=== PATIENT | female | born 1945 | race Caucasian/White ===

== ENCOUNTER 2016-09-04 18:55 | Inpatient (IN) | payer MEDICARE, OTHER ==
[~2016-09-04] VITALS: Ht 157.5 cm; Wt 63.5 kg
[2016-09-04] MEDS ORDERED: FOLI0.8T2 PO (19:24)
[2016-09-04] MEDS ORDERED: CHOL100044 PO (19:24)
[2016-09-04] MEDS ORDERED: BLOO-668 IN (19:24)
[2016-09-04] MEDS ORDERED: ESCI10TA PO (19:24)
[2016-09-04] MEDS ORDERED: ATOR40TA PO (19:24)
[2016-09-04] MEDS ORDERED: NITR0.4T6 SL (19:24)
[2016-09-04] MEDS ORDERED: AMLO10TA2 PO (19:24)
[2016-09-04] MEDS ORDERED: QUET25TA PO (19:24)
[2016-09-04] MEDS ORDERED: FAMO20TA8 PO (19:24)
[2016-09-04] MEDS ORDERED: INSU100V27 SQ (19:24)
[2016-09-04] MEDS ORDERED: LORA1TAB PO (19:24)
[2016-09-04] MEDS ORDERED: LEVO25TA9 PO (19:24)
[2016-09-04] MEDS ORDERED: ACET-868 PO (19:24)
[2016-09-04] MEDS ORDERED: TEMA15CA PO (19:24)
[2016-09-04] MEDS ORDERED: LISI-603 PO (19:24)
[2016-09-04] MEDS ORDERED: ISOS30TA6 PO (19:24)
[2016-09-04] MEDS ORDERED: ASPI325T2 PO (19:24)
[2016-09-04] MEDS ORDERED: IV NS 0.9% 500 ML BAG IV ONE (19:30)
[2016-09-04] MEDS ORDERED: HYDROMORPHONE INJ 2 MG/ML DISP.SYRIN IV ONE (19:30)
[2016-09-04 19:34] LABS: BASOPHILS # (AUTO) 0.3 /CMM (0.0-0.2); BASOPHILS % (AUTO) 3.7 % (0.0-2.0); DIFF TOTAL % 100 %; EOSINOPHILS % (AUTO) 0.3 % (0.0-6.0); HEMATOCRIT 43 % (33-45); HEMOGLOBIN 13.6 g/dL (11.5-14.8); LYMPHOCYTES # (AUTO) 3.6 /CMM (0.8-4.8); LYMPHOCYTES % (AUTO) 47.1 % (20.0-44.0); MEAN CORPUSCULAR HEMOGLOBIN 29 PG (26.0-33.0); MEAN CORPUSCULAR HGB CONC 32 g/dl (31.0-36.0); MEAN CORPUSCULAR VOLUME 90 fL (82-100); MONOCYTES # (AUTO) 0.8 /CMM (0.1-1.30); MONOCYTES % (AUTO) 9.8 % (2.0-12.0); NEUTROPHILS % (AUTO) 39.1 % (43.0-81.0); PLATELET COUNT (AUTO) 281 /CMM (150-450); RED BLOOD CELL COUNT(AUTO) 4.75 MIL/uL (4.0-5.2); WHITE BLOOD COUNT (AUTO) 7.7 K/uL (4.3-11.0)
[2016-09-04 19:45] LABS: CALCIUM, SERUM 9.4 mg/dL (8.5-10.1); CREATININE 4.1 mg/dL (0.6-1.3); POTASSIUM 3.8 mmol/L (3.5-5.1)
[2016-09-04 19:47] LABS: INR 0.94 (0.87-1.13); PROTHROMBIN TIME 9.9 SECS (9.5-12.7)
[2016-09-04] MEDS ORDERED: HYDROMORPHONE 1 MG/1 ML DISP.SYRIN ONE (19:57)
[2016-09-04] MEDS ORDERED: IV NS 0.9% 500 ML IV ONE (19:57)
[2016-09-04] MEDS ORDERED: IV SET PRIMARY 1 EA INFUS.SET MC ONE (19:58)
[2016-09-04] MEDS ORDERED: IV NS 0.9% 1,000 ML IV PRN (20:59)
[2016-09-04 21:00] VITALS: BP 172/79
[2016-09-04] MEDS ORDERED: ENOXAPARIN SODIUM 40 MG/0.4 ML DISP.SYRIN SQ SCH (21:00)
[2016-09-04] MEDS ORDERED: VANCOMYCIN 1 GM in IV D5W 250 ML IV ONE (21:00)
[2016-09-04] MEDS ORDERED: MAG HYDROX/AL HYDROX/SIMETH 30 ML UDC PO PRN (21:00)
[2016-09-04] MEDS ORDERED: ACETAMINOPHEN 325 MG TABLET PO PRN (21:00)
[2016-09-04] MEDS ORDERED: MAGNESIUM HYDROXIDE 30 ML UDC PO PRN (21:00)
[2016-09-04] MEDS ORDERED: Z GUARD REMEDY 2 OZ OINT TP PRN (21:00)
[2016-09-04] MEDS ORDERED: DEXTROSE 50%-WATER 50 ML DISP.SYRIN IV PRN (21:30)
[2016-09-04] MEDS ORDERED: ENOXAPARIN SODIUM 40 MG/0.4 ML DISP.SYRIN SQ ONE (21:33)
[2016-09-04] MEDS ORDERED: VANCOMYCIN 1 GM VIAL ONE (21:34)
[2016-09-04] MEDS ORDERED: IV D5W 250 ML IV ONE (21:34)
[2016-09-04] MEDS ORDERED: PIPERACILLIN /TAZOBACTAM 3.375 G VIAL IV ONE (21:35)
[2016-09-04] MEDS ORDERED: IV D5W 100 ML IV ONE (21:35)
[2016-09-04] MEDS ORDERED: HYDROMORPHONE INJ 2 MG/ML DISP.SYRIN ONE (21:37)
[2016-09-04] MEDS ORDERED: IV NS 0.9% 250 ML IV ONE (21:39)
[2016-09-04] MEDS ORDERED: INSULIN REGULAR, HUMAN 100 UNIT/ML 10 ML VIAL ONE (21:39)
[2016-09-04] MEDS ORDERED: IV SET PRIMARY PUMP SET 1 EA INFUS.SET MC ONE (21:39)
[2016-09-04] MEDS ORDERED: SECONDARY IV SET 1 EA INFUS.SET MC ONE (21:39)
[2016-09-04] MEDS: PIPERACILLIN /TAZOBACTAM 3.375 G in IV D5W 100 ML IV SCH (21:57)
[2016-09-04] MEDS: BLOOD SUGAR DIAGNOSTIC 1 EACH STRIP IN SCH (22:03)
[2016-09-04] MEDS: HYDROMORPHONE INJ 2 MG/ML DISP.SYRIN IV PRN (22:19)
[2016-09-04] MEDS: *INSULIN REGULAR(HUMULIN R)HUM 100 UNIT/ML VIAL SQ PRN (22:34)
[2016-09-04] MEDS ORDERED: ZOLPIDEM TARTRATE 5 MG TABLET ONE (22:43)
[2016-09-04] MEDS: ZOLPIDEM TARTRATE 5 MG TABLET PO PRN (23:04)
[2016-09-05] VITALS: BP 109/49
[2016-09-05 00:15] VITALS: BP 109/49
[2016-09-05] MEDS ORDERED: LORAZEPAM 1 MG TABLET PO PRN (02:30)
[2016-09-05] MEDS ORDERED: NITROGLYCERIN 0.4 MG/TAB BOTTLE SL PRN (02:30)
[2016-09-05] MEDS ORDERED: PIPERACILLIN /TAZOBACTAM 3.375 G VIAL IV ONE (04:15)
[2016-09-05] MEDS ORDERED: IV D5W 100 ML IV ONE (04:15)
[2016-09-05] MEDS: PIPERACILLIN /TAZOBACTAM 3.375 G in IV D5W 100 ML IV SCH (05:01)
[2016-09-05] MEDS ORDERED: HYDROMORPHONE INJ 2 MG/ML DISP.SYRIN ONE (05:11)
[2016-09-05] MEDS: HYDROMORPHONE INJ 2 MG/ML DISP.SYRIN IV PRN ×2 (05:15→09:43)
[2016-09-05] MEDS: BLOOD SUGAR DIAGNOSTIC 1 EACH STRIP IN SCH ×4 (05:34→21:34)
[2016-09-05 07:44] LABS: ALBUMIN 2.9 g/dL (3.4-5.0); BILIRUBIN,TOTAL 0.4 mg/dL (0.2-1.0); CALCIUM, SERUM 8.3 mg/dL (8.5-10.1); CREATININE 4.8 mg/dL (0.6-1.3); PHOSPHORUS 4.1 mg/dL (2.5-4.9); POTASSIUM 3.6 mmol/L (3.5-5.1); TOTAL PROTEIN, SERUM 6.8 g/dL (6.4-8.2)
[2016-09-05 08:00] VITALS: BP_SYST 121; BP_DIAS 50; BP_DIAS 70
[2016-09-05 08:05] LABS: BASOPHILS % (AUTO) 0.4 % (0.0-2.0); DIFF TOTAL % 100 %; EOSINOPHILS # (AUTO) 0.1 /CMM (0.0-0.7); EOSINOPHILS % (AUTO) 1.6 % (0.0-6.0); HEMATOCRIT 37 % (33-45); HEMOGLOBIN 11.8 g/dL (11.5-14.8); LYMPHOCYTES # (AUTO) 4.9 /CMM (0.8-4.8); LYMPHOCYTES % (AUTO) 57.8 % (20.0-44.0); MEAN CORPUSCULAR HEMOGLOBIN 29 PG (26.0-33.0); MEAN CORPUSCULAR HGB CONC 32 g/dl (31.0-36.0); MEAN CORPUSCULAR VOLUME 90 fL (82-100); MONOCYTES # (AUTO) 0.7 /CMM (0.1-1.30); MONOCYTES % (AUTO) 8.3 % (2.0-12.0); NEUTROPHILS # (AUTO) 2.7 /CMM (1.8-8.9); NEUTROPHILS % (AUTO) 31.9 % (43.0-81.0); RED BLOOD CELL COUNT(AUTO) 4.04 MIL/uL (4.0-5.2); WHITE BLOOD COUNT (AUTO) 8.5 K/uL (4.3-11.0)
[2016-09-05] MEDS ORDERED: FEE PK DOSING 1 MIN EA MC ONE (08:52)
[2016-09-05] MEDS: PANTOPRAZOLE 40 MG VIAL IV SCH (09:03)
[2016-09-05] MEDS: CHOLECALCIFEROL 1,000 UNIT TABLET (VIT D3) PO SCH (09:03)
[2016-09-05] MEDS: ESCITALOPRAM OXALATE (10 MG) 10 MG TABLET PO SCH (09:03)
[2016-09-05] MEDS: ASPIRIN 325 MG TABLET PO SCH (09:04)
[2016-09-05] MEDS: LEVOTHYROXINE SODIUM 25 MCG TABLET PO SCH (09:04)
[2016-09-05] MEDS: QUETIAPINE FUMARATE 25 MG TABLET PO SCH ×2 (09:04→21:29)
[2016-09-05] MEDS: AMLODIPINE BESYLATE 10 MG TABLET PO SCH (09:04)
[2016-09-05] MEDS: ISOSORBIDE MONONITRATE (30MG) 30 MG TAB.SR.24H PO SCH (09:05)
[2016-09-05] MEDS: LISINOPRIL (20MG) 20 MG TABLET PO SCH (09:05)
[2016-09-05] MEDS: VIT B CMPLX 3/FA/VIT C/BIOTIN 1 TAB TABLET PO SCH (09:16)
[2016-09-05] MEDS: ONDANSETRON HCL/PF 4 MG/2 ML VIAL IVP PRN (09:16)
[2016-09-05 10:30] VITALS: BP 153/84
[2016-09-05] MEDS: PIPERACILLIN /TAZOBACTAM 2.25 G in IV D5W 50 ML IV SCH ×2 (12:30→20:38)
[2016-09-05] MEDS: INSULIN REGULAR, HUMAN 100 UNIT/ML 3 ML VIAL SQ PRN ×2 (12:51→18:44)
[2016-09-05 13:25] LABS: LYMPHOCYTES % (MANUAL) 58 % (16-48)
[2016-09-05 13:26] LABS: ANISOCYTOSIS 1+
[2016-09-05 13:33] LABS: PLATELET ESTIMATE ADEQU
[2016-09-05 13:37] LABS: PLATELET COUNT (AUTO) 197 /CMM (150-450)
[2016-09-05 16:00] VITALS: BP 148/75
[2016-09-05] MEDS: POVIDONE-IODINE OINT 28.4 GM TUBE TP SCH (18:41)
[2016-09-05 20:00] VITALS: BP 143/63
[2016-09-05] MEDS: ATORVASTATIN 40 MG TABLET PO SCH (21:29)
[2016-09-05] MEDS: HYDROCODONE/APAP 5/325MG 1 EACH TABLET PO PRN (21:30)
[2016-09-06] MEDS: HYDROMORPHONE INJ 2 MG/ML DISP.SYRIN IV PRN ×2 (02:21→16:43)
[2016-09-06] MEDS: PIPERACILLIN /TAZOBACTAM 2.25 G in IV D5W 50 ML IV SCH ×3 (05:01→21:44)
[2016-09-06] MEDS: BLOOD SUGAR DIAGNOSTIC 1 EACH STRIP IN SCH ×4 (05:28→21:44)
[2016-09-06] MEDS ORDERED: VANCOMYCIN 500 MG in IV D5W 100 ML IV PRN (06:00)
[2016-09-06] MEDS: HYDROCODONE/APAP 5/325MG 1 EACH TABLET PO PRN (06:06)
[2016-09-06 07:27] LABS: CALCIUM, SERUM 8.9 mg/dL (8.5-10.1); CREATININE 6.5 mg/dL (0.6-1.3); POTASSIUM 3.6 mmol/L (3.5-5.1)
[2016-09-06 08:00] VITALS: BP 108/50
[2016-09-06] MEDS: ESCITALOPRAM OXALATE (10 MG) 10 MG TABLET PO SCH (08:14)
[2016-09-06] MEDS: ASPIRIN 325 MG TABLET PO SCH (08:14)
[2016-09-06] MEDS: QUETIAPINE FUMARATE 25 MG TABLET PO SCH ×2 (08:14→21:44)
[2016-09-06] MEDS: PANTOPRAZOLE 40 MG VIAL IV SCH (08:14)
[2016-09-06] MEDS: VIT B CMPLX 3/FA/VIT C/BIOTIN 1 TAB TABLET PO SCH (08:14)
[2016-09-06] MEDS: AMLODIPINE BESYLATE 10 MG TABLET PO SCH (08:14)
[2016-09-06] MEDS: CHOLECALCIFEROL 1,000 UNIT TABLET (VIT D3) PO SCH (08:14)
[2016-09-06] MEDS: ISOSORBIDE MONONITRATE (30MG) 30 MG TAB.SR.24H PO SCH (08:14)
[2016-09-06] MEDS: LEVOTHYROXINE SODIUM 25 MCG TABLET PO SCH (08:14)
[2016-09-06] MEDS: HEPARIN SODIUM, PORCINE 5000 UNITS/1 ML VIAL SQ SCH ×2 (08:15→21:43)
[2016-09-06] MEDS: LISINOPRIL (20MG) 20 MG TABLET PO SCH (08:15)
[2016-09-06] MEDS: INSULIN REGULAR, HUMAN 100 UNIT/ML 3 ML VIAL SQ PRN (12:25)
[2016-09-06 16:00] VITALS: BP 154/92
[2016-09-06] MEDS: POVIDONE-IODINE OINT 28.4 GM TUBE TP SCH (16:42)
[2016-09-06 20:00] VITALS: BP 109/60
[2016-09-06 20:07] VITALS: BP 109/60
[2016-09-06] MEDS: *INSULIN REGULAR(HUMULIN R)HUM 100 UNIT/ML VIAL SQ PRN (21:42)
[2016-09-06] MEDS: ATORVASTATIN 40 MG TABLET PO SCH (21:44)
[2016-09-06] MEDS ORDERED: VANCOMYCIN 500 MG in IV D5W 100 ML IV SCH (22:00)
[2016-09-06] MEDS: ZOLPIDEM TARTRATE 5 MG TABLET PO PRN (23:25)
[2016-09-07] MEDS: PIPERACILLIN /TAZOBACTAM 2.25 G in IV D5W 50 ML IV SCH ×3 (05:58→20:21)
[2016-09-07] MEDS: BLOOD SUGAR DIAGNOSTIC 1 EACH STRIP IN SCH ×4 (06:49→21:20)
[2016-09-07 08:00] VITALS: BP 104/53
[2016-09-07 08:06] LABS: CALCIUM, SERUM 8.7 mg/dL (8.5-10.1); CREATININE 5.5 mg/dL (0.6-1.3)
[2016-09-07] MEDS: PANTOPRAZOLE 40 MG VIAL IV SCH (08:12)
[2016-09-07] MEDS: VIT B CMPLX 3/FA/VIT C/BIOTIN 1 TAB TABLET PO SCH (08:12)
[2016-09-07] MEDS: ESCITALOPRAM OXALATE (10 MG) 10 MG TABLET PO SCH (08:12)
[2016-09-07] MEDS: CHOLECALCIFEROL 1,000 UNIT TABLET (VIT D3) PO SCH (08:12)
[2016-09-07] MEDS: LEVOTHYROXINE SODIUM 25 MCG TABLET PO SCH (08:12)
[2016-09-07] MEDS: ASPIRIN 325 MG TABLET PO SCH (08:12)
[2016-09-07] MEDS: QUETIAPINE FUMARATE 25 MG TABLET PO SCH ×2 (08:12→20:24)
[2016-09-07] MEDS: AMLODIPINE BESYLATE 10 MG TABLET PO SCH (08:13)
[2016-09-07] MEDS: LISINOPRIL (20MG) 20 MG TABLET PO SCH (08:13)
[2016-09-07] MEDS: ISOSORBIDE MONONITRATE (30MG) 30 MG TAB.SR.24H PO SCH (08:14)
[2016-09-07] MEDS: HEPARIN SODIUM, PORCINE 5000 UNITS/1 ML VIAL SQ SCH ×2 (08:17→21:24)
[2016-09-07] MEDS: INSULIN REGULAR, HUMAN 100 UNIT/ML 3 ML VIAL SQ PRN (11:59)
[2016-09-07 16:00] VITALS: BP 133/60
[2016-09-07] MEDS: POVIDONE-IODINE OINT 28.4 GM TUBE TP SCH (17:24)
[2016-09-07] MEDS: LACTOBACILLUS RHAMNOSUS GG 1 EACH CAP.SPRINK PO SCH (17:25)
[2016-09-07 19:00] VITALS: BP 126/60
[2016-09-07] MEDS ORDERED: methylPREDNISolone (4MG) 4 MG TABLET PO SCH (20:00)
[2016-09-07] MEDS: ATORVASTATIN 40 MG TABLET PO SCH (21:20)
[2016-09-07] MEDS: *INSULIN REGULAR(HUMULIN R)HUM 100 UNIT/ML VIAL SQ PRN (22:06)
[2016-09-08] MEDS: PIPERACILLIN /TAZOBACTAM 2.25 G in IV D5W 50 ML IV SCH ×3 (05:53→21:26)
[2016-09-08] MEDS ORDERED: methylPREDNISolone (4MG) 4 MG TABLET PO SCH (06:00)
[2016-09-08] MEDS ORDERED: diphenhydrAMINE HCL 50 MG CAPSULE PO SCH (06:00)
[2016-09-08] MEDS: INSULIN REGULAR, HUMAN 100 UNIT/ML 3 ML VIAL SQ PRN ×3 (07:04→18:13)
[2016-09-08] MEDS: BLOOD SUGAR DIAGNOSTIC 1 EACH STRIP IN SCH ×4 (07:04→22:43)
[2016-09-08 07:32] LABS: CALCIUM, SERUM 8.5 mg/dL (8.5-10.1)
[2016-09-08] MEDS: ASPIRIN 325 MG TABLET PO SCH (08:58)
[2016-09-08] MEDS: PANTOPRAZOLE 40 MG VIAL IV SCH (08:58)
[2016-09-08] MEDS: LEVOTHYROXINE SODIUM 25 MCG TABLET PO SCH (08:58)
[2016-09-08] MEDS: ISOSORBIDE MONONITRATE (30MG) 30 MG TAB.SR.24H PO SCH (08:59)
[2016-09-08] MEDS: CHOLECALCIFEROL 1,000 UNIT TABLET (VIT D3) PO SCH (08:59)
[2016-09-08] MEDS: LACTOBACILLUS RHAMNOSUS GG 1 EACH CAP.SPRINK PO SCH ×2 (08:59→18:09)
[2016-09-08] MEDS: ESCITALOPRAM OXALATE (10 MG) 10 MG TABLET PO SCH (08:59)
[2016-09-08] MEDS: QUETIAPINE FUMARATE 25 MG TABLET PO SCH ×2 (09:00→21:26)
[2016-09-08] MEDS: LISINOPRIL (20MG) 20 MG TABLET PO SCH (09:00)
[2016-09-08] MEDS: AMLODIPINE BESYLATE 10 MG TABLET PO SCH (09:00)
[2016-09-08] MEDS: VIT B CMPLX 3/FA/VIT C/BIOTIN 1 TAB TABLET PO SCH (09:00)
[2016-09-08] MEDS: HEPARIN SODIUM, PORCINE 5000 UNITS/1 ML VIAL SQ SCH ×2 (09:06→21:32)
[2016-09-08] MEDS ORDERED: CT SWABBABLE VALVE TRANS SET 1 EA INFUS.SET MC ONE (09:41)
[2016-09-08] MEDS ORDERED: IV NS 0.9% 250 ML IV ONE (09:41)
[2016-09-08] MEDS ORDERED: IOHEXOL-350 100 ML VIAL IV ONE (09:41)
[2016-09-08] MEDS: POVIDONE-IODINE OINT 28.4 GM TUBE TP SCH (18:10)
[2016-09-08] MEDS: HYDROCODONE/APAP 5/325MG 1 EACH TABLET PO PRN (18:24)
[2016-09-08 20:00] VITALS: BP 150/69
[2016-09-08] MEDS ORDERED: IV SET PRIMARY PUMP SET 1 EA INFUS.SET MC ONE (21:13)
[2016-09-08] MEDS: ATORVASTATIN 40 MG TABLET PO SCH (21:27)
[2016-09-09] MEDS: PIPERACILLIN /TAZOBACTAM 2.25 G in IV D5W 50 ML IV SCH ×3 (04:59→20:58)
[2016-09-09 06:05] LABS: CALCIUM, SERUM 8.8 mg/dL (8.5-10.1); POTASSIUM 3.7 mmol/L (3.5-5.1)
[2016-09-09] MEDS: BLOOD SUGAR DIAGNOSTIC 1 EACH STRIP IN SCH ×4 (06:45→21:58)
[2016-09-09 08:00] VITALS: BP 161/70
[2016-09-09] MEDS: LACTOBACILLUS RHAMNOSUS GG 1 EACH CAP.SPRINK PO SCH ×2 (08:27→16:50)
[2016-09-09] MEDS: VIT B CMPLX 3/FA/VIT C/BIOTIN 1 TAB TABLET PO SCH (08:27)
[2016-09-09] MEDS: ASPIRIN 325 MG TABLET PO SCH (08:27)
[2016-09-09] MEDS: LEVOTHYROXINE SODIUM 25 MCG TABLET PO SCH (08:27)
[2016-09-09] MEDS: ESCITALOPRAM OXALATE (10 MG) 10 MG TABLET PO SCH (08:27)
[2016-09-09] MEDS: QUETIAPINE FUMARATE 25 MG TABLET PO SCH ×2 (08:27→20:58)
[2016-09-09] MEDS: PANTOPRAZOLE 40 MG VIAL IV SCH (08:27)
[2016-09-09] MEDS: CHOLECALCIFEROL 1,000 UNIT TABLET (VIT D3) PO SCH (08:27)
[2016-09-09] MEDS: AMLODIPINE BESYLATE 10 MG TABLET PO SCH (08:28)
[2016-09-09] MEDS: LISINOPRIL (20MG) 20 MG TABLET PO SCH (08:28)
[2016-09-09] MEDS: ISOSORBIDE MONONITRATE (30MG) 30 MG TAB.SR.24H PO SCH (08:28)
[2016-09-09] MEDS: HEPARIN SODIUM, PORCINE 5000 UNITS/1 ML VIAL SQ SCH ×2 (08:34→20:55)
[2016-09-09] MEDS: INSULIN REGULAR, HUMAN 100 UNIT/ML 3 ML VIAL SQ PRN ×2 (12:12→17:21)
[2016-09-09 16:23] VITALS: BP 122/57
[2016-09-09] MEDS: POVIDONE-IODINE OINT 28.4 GM TUBE TP SCH (16:51)
[2016-09-09 20:00] VITALS: BP 130/59
[2016-09-09 20:01] VITALS: BP 130/59
[2016-09-09] MEDS: ATORVASTATIN 40 MG TABLET PO SCH (20:53)
[2016-09-09] MEDS: *INSULIN REGULAR(HUMULIN R)HUM 100 UNIT/ML VIAL SQ PRN (21:10)
[2016-09-09] MEDS: HYDROCODONE/APAP 5/325MG 1 EACH TABLET PO PRN (21:17)
[2016-09-10] MEDS: PIPERACILLIN /TAZOBACTAM 2.25 G in IV D5W 50 ML IV SCH ×2 (04:30→13:16)
[2016-09-10] MEDS ORDERED: IV NS 0.9% 250 ML IV ONE (04:37)
[2016-09-10 07:19] LABS: CREATININE 6.8 mg/dL (0.6-1.3); POTASSIUM 3.7 mmol/L (3.5-5.1)
[2016-09-10] MEDS: LEVOTHYROXINE SODIUM 25 MCG TABLET PO SCH (07:30)
[2016-09-10 07:52] LABS: BASOPHILS % (AUTO) 0.3 % (0.0-2.0); DIFF TOTAL % 100 %; EOSINOPHILS # (AUTO) 0.2 /CMM (0.0-0.7); EOSINOPHILS % (AUTO) 2.2 % (0.0-6.0); HEMATOCRIT 34 % (33-45); HEMOGLOBIN 11.3 g/dL (11.5-14.8); LYMPHOCYTES # (AUTO) 4.1 /CMM (0.8-4.8); LYMPHOCYTES % (AUTO) 47.7 % (20.0-44.0); MEAN CORPUSCULAR HEMOGLOBIN 30 PG (26.0-33.0); MEAN CORPUSCULAR HGB CONC 33 g/dl (31.0-36.0); MEAN CORPUSCULAR VOLUME 92 fL (82-100); MONOCYTES # (AUTO) 0.7 /CMM (0.1-1.30); MONOCYTES % (AUTO) 8.5 % (2.0-12.0); NEUTROPHILS # (AUTO) 3.6 /CMM (1.8-8.9); NEUTROPHILS % (AUTO) 41.3 % (43.0-81.0); PLATELET COUNT (AUTO) 231 /CMM (150-450); RED BLOOD CELL COUNT(AUTO) 3.75 MIL/uL (4.0-5.2); WHITE BLOOD COUNT (AUTO) 8.6 K/uL (4.3-11.0)
[2016-09-10 08:00] VITALS: BP 139/60
[2016-09-10 08:47] VITALS: BP 139/60
[2016-09-10] MEDS: PANTOPRAZOLE 40 MG VIAL IV SCH (08:50)
[2016-09-10] MEDS: HYDROCODONE/APAP 5/325MG 1 EACH TABLET PO PRN ×2 (08:53→20:34)
[2016-09-10] MEDS: LACTOBACILLUS RHAMNOSUS GG 1 EACH CAP.SPRINK PO SCH ×2 (09:00→16:07)
[2016-09-10] MEDS: HEPARIN SODIUM, PORCINE 5000 UNITS/1 ML VIAL SQ SCH ×2 (09:00→20:25)
[2016-09-10] MEDS: BLOOD SUGAR DIAGNOSTIC 1 EACH STRIP IN SCH ×4 (09:03→22:00)
[2016-09-10] MEDS: INSULIN REGULAR, HUMAN 100 UNIT/ML 3 ML VIAL SQ PRN ×2 (09:14→17:34)
[2016-09-10] MEDS: ONDANSETRON HCL/PF 4 MG/2 ML VIAL IVP PRN (11:41)
[2016-09-10] MEDS ORDERED: SILVER NITRATE APPLICATOR 1 EA BOX TP ONE ×2 (14:30)
[2016-09-10] MEDS ORDERED: LIDOCAINE 1%-EPI 1:100,000 50 ML VIAL IJ ONE (14:30)
[2016-09-10 16:00] VITALS: BP 150/63
[2016-09-10] MEDS: VIT B CMPLX 3/FA/VIT C/BIOTIN 1 TAB TABLET PO SCH (16:06)
[2016-09-10] MEDS: LISINOPRIL (20MG) 20 MG TABLET PO SCH (16:07)
[2016-09-10] MEDS: CHOLECALCIFEROL 1,000 UNIT TABLET (VIT D3) PO SCH (16:07)
[2016-09-10] MEDS: AMLODIPINE BESYLATE 10 MG TABLET PO SCH (16:07)
[2016-09-10] MEDS: ESCITALOPRAM OXALATE (10 MG) 10 MG TABLET PO SCH (16:07)
[2016-09-10] MEDS: ISOSORBIDE MONONITRATE (30MG) 30 MG TAB.SR.24H PO SCH (16:07)
[2016-09-10] MEDS: ASPIRIN 325 MG TABLET PO SCH (16:07)
[2016-09-10] MEDS: QUETIAPINE FUMARATE 25 MG TABLET PO SCH ×2 (16:07→20:24)
[2016-09-10] MEDS: NEOMY SULF/BACITRAC ZN/POLY 15 GM TUBE TP SCH (16:09)
[2016-09-10] MEDS: POVIDONE-IODINE OINT 28.4 GM TUBE TP SCH (16:09)
[2016-09-10 20:00] VITALS: BP 144/60
[2016-09-10] MEDS: HYDROMORPHONE INJ 2 MG/ML DISP.SYRIN IV PRN (20:26)
[2016-09-10] MEDS: ATORVASTATIN 40 MG TABLET PO SCH (21:44)
[2016-09-10] MEDS: ZOLPIDEM TARTRATE 5 MG TABLET PO PRN (23:37)
[2016-09-11] MEDS: LEVOTHYROXINE SODIUM 25 MCG TABLET PO SCH (06:31)
[2016-09-11] MEDS: BLOOD SUGAR DIAGNOSTIC 1 EACH STRIP IN SCH ×3 (06:31→17:10)
[2016-09-11] MEDS: INSULIN REGULAR, HUMAN 100 UNIT/ML 3 ML VIAL SQ PRN ×2 (06:32→11:53)
[2016-09-11 07:08] LABS: CALCIUM, SERUM 8.1 mg/dL (8.5-10.1); POTASSIUM 4.1 mmol/L (3.5-5.1)
[2016-09-11 07:09] LABS: CREATININE 8.3 mg/dL (0.6-1.3)
[2016-09-11 08:00] VITALS: BP 144/60
[2016-09-11] MEDS: PANTOPRAZOLE 40 MG VIAL IV SCH (08:30)
[2016-09-11] MEDS: ISOSORBIDE MONONITRATE (30MG) 30 MG TAB.SR.24H PO SCH (08:54)
[2016-09-11] MEDS: AMLODIPINE BESYLATE 10 MG TABLET PO SCH (08:54)
[2016-09-11] MEDS: LISINOPRIL (20MG) 20 MG TABLET PO SCH (08:54)
[2016-09-11] MEDS: HEPARIN SODIUM, PORCINE 5000 UNITS/1 ML VIAL SQ SCH (09:00)
[2016-09-11] MEDS ORDERED: PANTOPRAZOLE 40 MG TABLET.DR PO SCH (09:51)
[2016-09-11] MEDS: CHOLECALCIFEROL 1,000 UNIT TABLET (VIT D3) PO SCH (09:58)
[2016-09-11] MEDS: LACTOBACILLUS RHAMNOSUS GG 1 EACH CAP.SPRINK PO SCH ×2 (09:58→17:01)
[2016-09-11] MEDS: QUETIAPINE FUMARATE 25 MG TABLET PO SCH (09:58)
[2016-09-11] MEDS: ASPIRIN 325 MG TABLET PO SCH (09:58)
[2016-09-11] MEDS: ESCITALOPRAM OXALATE (10 MG) 10 MG TABLET PO SCH (09:58)
[2016-09-11] MEDS: VIT B CMPLX 3/FA/VIT C/BIOTIN 1 TAB TABLET PO SCH (09:58)
[2016-09-11] MEDS ORDERED: NEOMY SULF/BACITRAC ZN/POLY 15 GM TUBE TP SCH (10:00)
[2016-09-11] MEDS: NEOMY SULF/BACITRAC ZN/POLY 15 GM TUBE TP SCH (11:01)
[2016-09-11 16:00] VITALS: BP 142/61
[2016-09-11] MEDS: POVIDONE-IODINE OINT 28.4 GM TUBE TP SCH (17:02)
== END 2016-09-11 19:50 | disposition home or self-care (01) | DRG 987 ==
LOC: ER 19:06 → MED 20:19
PROVIDERS: ADMIT Family Medicine; ATTEND Family Medicine
PROC: 5A1D60Z (ICD-10-PCS; 2016-09-06)
PROC: 0JBJ0ZZ Excision of Right Hand Subcutaneous Tissue and Fascia, Open Approach (ICD-10-PCS; principal; 2016-09-11)
DX: E11.52 Type 2 diabetes mellitus with diabetic peripheral angiopathy with gangrene (principal); N18.6 End stage renal disease; L03.115 Cellulitis of right lower limb; I12.0 Hypertensive chronic kidney disease with stage 5 chronic kidney disease or end stage renal disease; F03.91 Unspecified dementia, unspecified severity, with behavioral disturbance; M86.8X7 Other osteomyelitis, ankle and foot; E11.22 Type 2 diabetes mellitus with diabetic chronic kidney disease; Z99.2 Dependence on renal dialysis; E11.40 Type 2 diabetes mellitus with diabetic neuropathy, unspecified; E03.9 Hypothyroidism, unspecified; E78.5 Hyperlipidemia, unspecified; E83.39 Other disorders of phosphorus metabolism; I25.10 Atherosclerotic heart disease of native coronary artery without angina pectoris; I73.9 Peripheral vascular disease, unspecified; Z86.73 Personal history of transient ischemic attack (TIA), and cerebral infarction without residual deficits; L03.011 Cellulitis of right finger; E11.621 Type 2 diabetes mellitus with foot ulcer; L97.519 Non-pressure chronic ulcer of other part of right foot with unspecified severity; D64.9 Anemia, unspecified
CPT/HCPCS: 36415; 71010-TC; 73630-TC; 80048-TC; 80053-TC; 80202-TC; 82962-TC; 83735-TC; 84100-TC; 85025-TC; 85730-TC; 87081-TC; 90935-TC; 93307-TC; 93925-TC; A4606; A6403; C9113; J1170; J1644; J1650; J1815; J2405; J2543; J3370; J3490; J7040; J7050; J7060; J7509; Q0163; Q9967; Z7610